=== PATIENT | female | born 1980 | race Caucasian/White ===

== ENCOUNTER 2017-02-11 16:39 | Emergency (ER) | payer SELFPAY ==
[~2017-02-11] VITALS: Ht 160 cm; Wt 61.0 kg
[2017-02-11 16:41] VITALS: Ht 160 cm; Wt 61.0 kg
[2017-02-11] MEDS ORDERED: KETOROLAC 60 MG INJ IM STA (17:00)
[2017-02-11 17:27] LABS: URINE BLOOD (Dip) POC 1+ (NEGATIVE)
--- NOTE | 2017-02-11 18:11 | RADRPT ---
PROCEDURE: XR Cervical Spine. CLINICAL INDICATION: Generalized neck pain TECHNIQUE: Erect AP, lateral, and odontoid views of the cervical spine were obtained. COMPARISON: None available FINDINGS: Mineralization is within normal limits. No fracture or osseous lesion is identified. Vertebral bod ies are normal in height. Cervical lordosis is straightened. No vertebral subluxation is seen. In tervertebral discs are normal in height. Facet joints appear maintained. Prevertebral soft tissues , predental space and atlantoaxial joint are unremarkable. RPTAT:HJJR IMPRESSION: Straightening of the normal cervical lordosis possibly reflects muscle spasm, otherwise unremarkable three-view cervical spine series. Physician Ru Date Time Electronically viewed and signed by Physician Ru on 02/11/2017 18:11 JR/
[2017-02-11] MEDS ORDERED: DIAZ-90 PO (18:23)
[2017-02-11] MEDS ORDERED: IBUP-1542 PO (18:23)
--- NOTE | 2017-02-11 18:26 | ERD ---
ER Documentation Chief Complaint Date/Time DATE: 02/11/17 TIME: 18:25 Chief Complaint NECK PAIN X 1 WEEK AND GETTING WORSE HPI This 36-year-old female presents with back pain for last week on the right side. It radiates up the back of her head and to her right shoulder and upper extremity. He denies inciting events or history of trauma. She denies any chest pain shortness of breath or bowel bladder incontinence or weakness. Patient denies any previous neck injury although patient did used to do gymnastics . ROS All systems reviewed and are negative except as per history of present illness. Medications Home Meds Active Scripts Diazepam* (Valium*) 5 Mg Tablet, 5 MG PO Q8, #15 TAB Prov:RENATE AMES MD 02/11/17 Ibuprofen* (Motrin*) 600 Mg Tab, 600 MG PO Q6, #20 TAB Prov:RENATE AMES MD 02/11/17 Allergies Allergies: Coded Allergies: No Known Allergies (Verified Allergy, Unknown, 02/11/17) PMhx/Soc History of Surgery: Yes (C/S 11/2012) Anesthesia Reaction: No Hx Neurological Disorder: No Hx Respiratory Disorders: No Hx Cardiac Disorders: No Hx Psychiatric Problems: No Hx Miscellaneous Medical Probl: No Hx Alcohol Use: Yes (OCCASIONALLY) Hx Substance Use: No Hx Tobacco Use: No Smoking Status: Never smoker Physical Exam Vitals Vital Signs Date Time Temp Pulse Resp B/P Pulse Ox O2 Delivery O2 Flow Rate FiO2 02/11/17 16:41 99.0 113 18 132/91 98 Physical Exam Const: [] Alert, [id number] per Head: Atraumatic Eyes: Normal Conjunctiva ENT: Normal External Ears, Nose and Mouth. Neck: Limited range of motion due to pain. Tenderness in the right cervical paraspinous muscles. No midline tenderness or deformities. Mild tenderness in the right trapezius. Resp: Clear to auscultation bilaterally Cardio: Regular rate and rhythm, no murmurs Abd: Soft, non tender, non distended. Normal bowel sounds Skin: No petechiae or rashes Back: No midline or flank tenderness Ext: No cyanosis, or edema Neur: Awake and alert. Normal gait. No appreciable focal neurologic deficits Psych: Normal Mood and Affect Results 24 hrs Laboratory Tests Test 02/11/17 17:29 Bedside Urine pH (LAB) 5.5 Bedside Urine Protein (LAB) Negative Bedside Urine Glucose (UA) Negative Bedside Urine Ketones (LAB) Negative Bedside Urine Blood 1+ Bedside Urine Nitrite (LAB) Negative Bedside Urine Leukocyte Esterase (L Negative Current Medications Medications (Trade) Dose Ordered Sig/Elvis Route PRN Reason Start Time Stop Time Status Last Admin Dose Admin Ketorolac Tromethamine (Toradol) 60 mg ONCE STAT IM 02/11/17 17:00 02/11/17 17:02 DC 02/11/17 17:17 Procedures/MDM X-ray C spine 3V Interpreted by me: Bones: [No fracture] Joints: No dislocation Foreign body: None. Impression-normal cervical spine x-ray Patient was given Toradol 60 mg IM. Patient presents with right-sided neck pain radiating up the back of the head and the shoulder consistent with cervical radicular pain. There is no signs or symptoms to suggest epidural abscess, fracture, dislocation, myelopathy. Patient will be treated with ibuprofen and Valium and instructed to follow-up with primary doctor. She should otherwise return for fevers, vomiting, shortness breath, new worsening symptoms. Departure Diagnosis: Primary Impression: Radiculitis Additional Impression: Neck pain Condition: Stable Patient Instructions: Neck Pain, No Trauma, Radiculopathy, Cervical Additional Instructions: X-ray normal. Likely pinched nerve from disconnect. See primary doctor for follow-up for possible further evaluation specialty referral for persistent symptoms. Recheck for fevers, shortness breath, chest pain, additional symptoms. RENATE AMES MD February 11, 2017 18:26
[2017-02-11 18:47] VITALS: BP 134/83; PULSE 88; RESP 18; TEMP 99
== END 2017-02-11 18:26 | disposition home or self-care (01) ==
LOC: E/R 16:39
DX: M54.12 Radiculopathy, cervical region (principal)
CPT/HCPCS: 72040; 81003; 96372; 99284; J1885